=== PATIENT | male | born 1990 | race Caucasian/White ===

== ENCOUNTER 2020-10-15 08:53 | Emergency (ER) | payer OTHER ==
[~2020-10-15] VITALS: Ht 170.2 cm; Wt 97.6 kg
--- NOTE | 2020-10-15 10:11 | NUR ---
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
[2020-10-15 10:35] VITALS: BP 118/75
== END 2020-10-15 11:17 | disposition home or self-care (01) ==
LOC: ED 11:11
DX: S50.11XA Contusion of right forearm, initial encounter (principal); X58.XXXA Exposure to other specified factors, initial encounter; Y93.89 Activity, other specified; Y92.89 Other specified places as the place of occurrence of the external cause; Y99.8 Other external cause status
CPT/HCPCS: 29125; 99283